=== PATIENT | female | born 1975 ===

== ENCOUNTER → 2019-02-13 21:27 | Outpatient (REF) | payer OTHER, SELFPAY ==
[2019-02-15 14:17] LABS: CMV IgM Antibody < 30.00 AU/mL (< 30.00)
[2019-02-15 14:31] LABS: EBV Virus IgM Ab < 36.00 U/mL (< 36.00)
[2019-02-16 15:09] LABS: C.albicans IgA 0.9; C.albicans IgG 0.5; C.albicans IgM 0.6 (<1.0)
== END ==
LOC: LAB 21:27
PROVIDERS: Visit Provider Naturopath
DX: D47.3 Essential (hemorrhagic) thrombocythemia (principal)
CPT/HCPCS: 36415; 86628; 86644; 86645; 86663; 86664; 86665; 86790